=== PATIENT | female | born 1975 | race American Indian/Alaskan Native ===

== ENCOUNTER 2017-08-09 11:06 | Emergency (ER) | payer SELFPAY ==
[2017-08-09 12:01] LABS: Eosinophils % (Auto) 2.7 % (0.0-4.3); Hematocrit 43.8 % (30.3-42.9); Hemoglobin 14.8 gm/dl (10.1-14.3); Mean Corpuscular HGB Conc 34 % (30-34); Mean Corpuscular Hemoglobin 30 pg (28-32); Mean Corpuscular Volume 89 fl (79-97); Platelet Count 168 K/mm3 (140-440); Red Blood Count 4.95 M/mm3 (3.65-5.03); Red Cell Distribution Width 14.4 % (13.2-15.2); White Blood Count 4.5 K/mm3 (4.5-11.0)
[2017-08-09 12:24] LABS: Anion Gap 16 mmol/L; BUN/Creatinine Ratio 13; Blood Urea Nitrogen 9 mg/dL (7-17); Calcium 8.9 mg/dL (8.4-10.2); Carbon Dioxide 25 mmol/L (22-30); Chloride 100.7 mmol/L (98-107); Glucose 93 mg/dL (65-100); Potassium 3.9 mmol/L (3.6-5.0); Sodium 138 mmol/L (137-145)
--- NOTE | 2017-08-09 13:14 | XRay Report ---
ROUTINE CHEST, TWO VIEWS: HISTORY: Shortness of breath. The trachea, heart, mediastinal contour, lung [place] and bony thorax are unremarkable. IMPRESSION: Unremarkable chest x-ray.
[2017-08-09 15:29] VITALS: BP 162/74
== END 2017-08-09 15:55 | disposition left against medical advice (07) ==
LOC: ED 11:06
DX: R42 Dizziness and giddiness (principal); Z53.21 Procedure and treatment not carried out due to patient leaving prior to being seen by health care provider
CPT/HCPCS: 36415; 71020; 80048; 81025; 84484; 85025; 93005; 93010

== ENCOUNTER 2021-03-01 22:20 | Emergency (ER) | payer SELFPAY ==
[2021-03-01 22:39] VITALS: BP 134/80
--- NOTE | 2021-03-01 23:11 | XRay Report ---
CHEST 2 VIEWS, 03/01/2021 9:54 PM INDICATION: Chest pain. Shortness of breath. COMPARISON: Chest radiograph, 08/09/2017 FINDINGS: Support devices: None. Heart: The cardiac silhouette is normal in size. Lungs/pleura: The lungs are clear of focal airspace disease or significant pleural effusion. Additional findings: No significant acute abnormality. IMPRESSION: 1. No evidence of acute cardiopulmonary process. Signer Name: Steph Wallace MD Signed: 03/01/2021 11:06 PM Workstation Name: [id number]
[2021-03-01 23:16] LABS: Basophils % (Auto) 0.7 % (0.0-1.8); Eosinophils # (Auto) 0.2 K/mm3 (0.0-0.4); Eosinophils % (Auto) 3.2 % (0.0-4.3); Hematocrit 41.8 % (30.3-42.9); Hemoglobin 14.3 gm/dl (10.1-14.3); Lymphocytes # (Auto) 2.3 K/mm3 (1.2-5.4); Lymphocytes % (Auto) 36.4 % (13.4-35.0); Mean Corpuscular HGB Conc 34 % (30-34); Mean Corpuscular Volume 89 fl (79-97); Monocytes # (Auto) 0.4 K/mm3 (0.0-0.8); Monocytes % (Auto) 6.2 % (0.0-7.3); Platelet Count 189 K/mm3 (140-440); Red Blood Count 4.67 M/mm3 (3.65-5.03)
[2021-03-01 23:38] LABS: Alanine Aminotransferase 33 units/L (7-56); BUN/Creatinine Ratio 12; Blood Urea Nitrogen 11 mg/dL (7-17); Calcium 9.7 mg/dL (8.4-10.2); Hemolysis Index 11
--- NOTE | 2021-03-05 18:52 | Electrocardiograph Report ---
[facility] Test Date: 2021-03-01 Test Time: 22:30:28 Pat Name: TANI STREETER Department: Room: Gender: F Sewing Machine Operator Plastic Zipper: : 1975 Requested By: MAGDY SWARTZ Order Number: [id number] Reading MD: Yossi Fernandez Measurements Intervals [place] Rate: 81 P: 47 NC: 166 QRS: 46 QRSD: 83 T: 17 QT: 383 QTc: 444 Interpretive Statements Sinus rhythm No previous ECG available for comparison Electronically Signed On 03-05-2021 18:51:55 EDT by Yossi Fernandez
== END 2021-03-02 00:55 | disposition left against medical advice (07) ==
LOC: ED 22:20
DX: R07.89 Other chest pain (principal); Z53.21 Procedure and treatment not carried out due to patient leaving prior to being seen by health care provider
CPT/HCPCS: 36415; 71046; 80053; 84484; 85025; 93005